=== PATIENT | male | born 2000 | race Hispanic/Latino ===

== ENCOUNTER 2022-12-16 08:15 | Emergency (ER) | payer BC ==
[~2022-12-16] VITALS: Ht 180.3 cm; Wt 101.6 kg
[2022-12-16] MEDS ORDERED: BENZONATATE 100 MG CAPSULE PO ONE (09:30)
[2022-12-16] MEDS ORDERED: ONDANSETRON ODT 4MG TAB SL ONE (09:30)
[2022-12-16] MEDS ORDERED: KETOROLAC 60 MG VIAL (30MG/ML) IM ONE (09:30)
[2022-12-16] MEDS ORDERED: ONDA4TAB10 PO (10:32)
[2022-12-16] MEDS ORDERED: IBUP-2077 PO (10:32)
[2022-12-16] MEDS ORDERED: PROM118S5 PO (10:32)
[2022-12-16] MEDS ORDERED: DESL5TAB45 PO (10:32)
[2022-12-16 10:47] VITALS: BP 121/61
== END 2022-12-16 10:53 | disposition home or self-care (01) ==
LOC: EDH 08:15
DX: J06.9 Acute upper respiratory infection, unspecified (principal); I10 Essential (primary) hypertension; Z20.822 Contact with and (suspected) exposure to COVID-19; Z88.5 Allergy status to narcotic agent; Z98.890 Other specified postprocedural states
CPT/HCPCS: 99284; 87635; 87880; 87804 ×2; 96372; C9803; J1885

== ENCOUNTER 2023-08-17 18:08 | Emergency (ER) | payer BC ==
[~2023-08-17] VITALS: Ht 180.3 cm; Wt 104.3 kg
[~2023-08-17 18:08] MED LIST: ONDA4TAB10 PO
[2023-08-17 19:33] LABS: BASOPHILS # (AUTO) 0.03 K/uL (0.00-0.20); BASOPHILS % (AUTO) 0.4 % (0.0-5.0); EOSINOPHILS % (AUTO) 1.2 % (0.0-8.0); HEMATOCRIT 46.2 % (42-54); IMMATURE GRANULOCYTE ABSOLUTE 0.03 K/uL (0-1); LYMPHOCYTES # (AUTO) 2.1 K/uL (1.0-4.8); LYMPHOCYTES % (AUTO) 26.1 % (21.0-51.0); MEAN CORPUSCULAR HEMOGLOBIN 29.2 pg (27.0-33.0); MEAN CORPUSCULAR HGB CONC 33.5 g/dL (32.0-36.0); MONOCYTES # (AUTO) 1.1 K/uL (0.1-1.0); MONOCYTES % (AUTO) 13.1 % (3.0-13.0); NEUTROPHILS # (AUTO) 4.8 K/uL (1.8-7.7); NEUTROPHILS % (AUTO) 58.8 % (40.0-77.0); PLATELET COUNT (AUTO) 193 K/uL (130-400); RED BLOOD CELL COUNT(AUTO) 5.31 MIL/uL (4.50-6.20); RED CELL DISTRIBUTION WIDTH 12.7 % (11.0-15.5); WHITE BLOOD COUNT (AUTO) 8.2 K/uL (4.8-10.8)
[2023-08-17 19:39] LABS: CREATININE 1.3 mg/dL (0.5-1.5); POTASSIUM 3.2 mmol/L (3.5-5.1)
[2023-08-17 19:44] LABS: ALBUMIN 4.1 g/dL (3.5-5.0); BILIRUBIN,TOTAL 0.2 mg/dL (0.2-1.0); TOTAL PROTEIN, SERUM 8.3 g/dL (6.0-8.3)
[2023-08-17 19:51] LABS: APPEARANCE,URINE CLEAR (CLEAR); BILIRUBIN,URINE NEGATIVE (NEGATIVE); COLOR,URINE YELLOW (YELLOW); GLUCOSE, URINE (UA) NEGATIVE (NEGATIVE); KETONES,URINE NEGATIVE (NEGATIVE); LEUKOCYTE ESTERASE ,URINE NEGATIVE Leu/uL (NEGATIVE); NITRATE,URINE NEGATIVE (NEGATIVE); PH,URINE 5.5 (5.0-8.0); PROTEIN,URINE 50 mg/dL (NEGATIVE); UROBILINOGEN,URINE 0.2 mg/dL (0.2-1.0)
[2023-08-17 19:52] LABS: AMPHET/METH SCREEN,URINE NEGATIVE (NEGATIVE); BARBITURATE SCREEN, URINE NEGATIVE (NEGATIVE); BENZODIAZEPINES SCREEN,URINE NEGATIVE (NEGATIVE); CANNABINOID SCREEN,URINE POSITIVE (NEGATIVE); COCAINE SCREEN,URINE NEGATIVE (NEGATIVE); OPIATE SCREEN,URINE NEGATIVE (NEGATIVE); PHENCYCLIDINE SCREEN,URINE NEGATIVE (NEGATIVE)
[2023-08-17 19:55] LABS: ADD UA MICROSCOPIC YES
[2023-08-17 19:56] LABS: BACTERIA,URINE RARE /HPF (None Seen); MUCUS,URINE MOD LPF (None Seen); OTHER CASTS, URINE 1 /LPF (None Seen); RBC,URINE 0-1 /HPF (0-1); SQUAMOUS EPITHELIAL CELL,UR RARE /HPF (0-2)
[2023-08-17] MEDS ORDERED: IOHEXOL-350 75 ML VIAL IV ONE (20:41)
[2023-08-17 21:43] VITALS: BP 126/70; PULSE 78; RESP 18; O2SAT 98
[2023-08-17] MEDS ORDERED: PANT40TA55 PO (22:25)
== END 2023-08-17 22:49 | disposition home or self-care (01) ==
LOC: EDH 18:08
DX: K74.60 Unspecified cirrhosis of liver (principal); K76.6 Portal hypertension; Z88.5 Allergy status to narcotic agent
CPT/HCPCS: 99284; 74177; 80053; 80305; 82140; 83690; 85025; 86850; 86900; 86901; 87088; 81001; 36415; Q9967

== ENCOUNTER 2024-01-05 11:54 | Observation (INO) | payer BC, MEDICARE ==
[~2024-01-05] VITALS: Ht 180.3 cm; Wt 106.6 kg
[~2024-01-05 11:54] MED LIST changes: +PANT40TA55 PO
[2024-01-05] MEDS: PANTOPRAZOLE 40 MG/VIAL IVP ONE (13:04)
[2024-01-05] MEDS: LORAZEPAM 2 MG/ML 1 ML VIAL IVP ONE (13:04)
[2024-01-05] MEDS: 0.9%NACL 1000ML 1,000 ML IV ONE ×2 (13:04→14:55)
[2024-01-05] MEDS: THIAMINE HCL 100 MG/ML 2ML VIAL IVP ONE (13:04)
[2024-01-05] MEDS: ONDANSETRON 4MG INJ IVP ONE (13:04)
[2024-01-05 13:06] LABS: BASOPHILS # (AUTO) 0.03 K/uL (0.00-0.20); BASOPHILS % (AUTO) 0.2 % (0.0-5.0); EOSINOPHILS # (AUTO) 0.07 K/uL (0.00-0.70); EOSINOPHILS % (AUTO) 0.5 % (0.0-8.0); HEMATOCRIT 47.6 % (42-54); IMMATURE GRANULOCYTE ABSOLUTE 0.07 K/uL (0-1); LYMPHOCYTES # (AUTO) 3.3 K/uL (1.0-4.8); LYMPHOCYTES % (AUTO) 23.9 % (21.0-51.0); MEAN CORPUSCULAR HEMOGLOBIN 29.4 pg (27.0-33.0); MEAN CORPUSCULAR HGB CONC 33.6 g/dL (32.0-36.0); MEAN CORPUSCULAR VOLUME 87.3 fL (79-99); MONOCYTES # (AUTO) 1.3 K/uL (0.1-1.0); MONOCYTES % (AUTO) 9.4 % (3.0-13.0); NEUTROPHILS % (AUTO) 65.5 % (40.0-77.0); PLATELET COUNT (AUTO) 263 K/uL (130-400); RED BLOOD CELL COUNT(AUTO) 5.45 MIL/uL (4.50-6.20); RED CELL DISTRIBUTION WIDTH 13.6 % (11.0-15.5); WHITE BLOOD COUNT (AUTO) 13.7 K/uL (4.8-10.8)
[2024-01-05 13:12] LABS: CARBON DIOXIDE 32 mmol/L (21-32); CHLORIDE 101 mmol/L (101-111); CREATININE 1.1 mg/dL (0.5-1.5); GLOMERULAR FILTR. RATE CALC 96 mL/min (>90); GLUCOSE,RANDOM 98 mg/dL (70-105); POTASSIUM 4.6 mmol/L (3.5-5.1); SODIUM SERUM 139 mmol/L (136-145); UREA NITROGEN, BLOOD 9 mg/dL (7-18)
[2024-01-05 13:16] LABS: ALANINE AMINOTRANSFERASE 41 U/L (12-78); ALBUMIN 4.4 g/dL (3.5-5.0); ALCOHOL, BLOOD < 3 mg/dL (0-10); AMMONIA 14 umol/L (11-32); ASPARTATE AMINOTRANSFERASE 22 U/L (10-37); BILIRUBIN,TOTAL 0.6 mg/dL (0.2-1.0); CREATINE KINASE, TOTAL 207 U/L (21-232); TOTAL PROTEIN, SERUM 8.7 g/dL (6.0-8.3)
[2024-01-05] MEDS: ALBUTEROL 0.083% 2.5 MG/3 ML INH IH ONE (13:55)
[2024-01-05 13:56] VITALS: PULSE 83; RESP 20
[2024-01-05] MEDS ORDERED: LORAZEPAM 2 MG/ML 1 ML VIAL IVP PRN ×2 (16:00)
[2024-01-05] MEDS ORDERED: DOCUSATE SODIUM 100 MG CAP PO PRN ×2 (16:00)
[2024-01-05] MEDS ORDERED: POTASSIUM CHLORIDE 20MEQ/100ML 100 ML IV PRN ×2 (16:00)
[2024-01-05] MEDS ORDERED: PHARMACY COMMUNICATION MISC PRN (16:00)
[2024-01-05] MEDS ORDERED: ACETAMINOPHEN 500 MG TABLET PO PRN (16:00)
[2024-01-05] MEDS ORDERED: MAGNESIUM 2GM PREMIX 50ML 50 ML IV PRN (16:00)
[2024-01-05] MEDS ORDERED: PROMETHAZINE HCL 25 MG TABLET PO PRN (16:00)
[2024-01-05] MEDS ORDERED: CHLORDIAZEPOXIDE HCL 25 MG CAP PO PRN ×2 (16:00)
[2024-01-05] MEDS ORDERED: ALPRAZOLAM 0.5 MG TABLET PO PRN (16:00)
[2024-01-05] MEDS ORDERED: GUAIFENESIN SUGAR-FREE 100 MG/5 ML UDCUP PO PRN (16:00)
[2024-01-05] MEDS ORDERED: ONDANSETRON 4MG INJ IV PRN (16:00)
[2024-01-05] MEDS ORDERED: KCL 20 MEQ ERTAB PO PRN (16:00)
[2024-01-05] MEDS ORDERED: POTASSIUM CHLORIDE 10% ELIXIR 20 MEQ/15 ML UDCUP PO PRN (16:00)
[2024-01-05] MEDS ORDERED: POLYETHYLENE GLYCOL 3350 17 GM POWD.PACK PO PRN (16:00)
[2024-01-05] MEDS ORDERED: LACTULOSE 20 GM/30 ML UDCUP PO PRN (16:00)
[2024-01-05] MEDS: LACTATED RINGERS 1000ML 1,000 ML IV SCH (16:18)
[2024-01-05 16:45] LABS: MAGNESIUM 1.9 mg/dL (1.80-2.40)
[2024-01-05] MEDS: THIAMINE HCL 100 MG, FOLIC ACID 1 MG, M.V.I. IV [ADULT] 10 ML in 0.9%NACL 1000ML 1,000 ML IV SCH (16:47)
[2024-01-05 17:52] VITALS: O2SAT 98
[2024-01-05] MEDS: CEFTRIAXONE 2GM VIAL IVPB SCH (17:57)
[2024-01-05 19:49] VITALS: BP 116/63; PULSE 66; RESP 16
[2024-01-05] MEDS ORDERED: SUCRALFATE 1 GM TABLET PO SCH (21:00)
[2024-01-06] MEDS ORDERED: NICOTINE 14 MG/ 24 HR PATCH TD SCH (09:00)
[2024-01-06] MEDS ORDERED: FOLIC ACID 1 MG TABLET PO SCH (09:00)
[2024-01-06] MEDS ORDERED: MULTIVITAMIN TABLET PO SCH (09:00)
[2024-01-06] MEDS ORDERED: LISINOPRIL 10 MG TABLET PO SCH (09:00)
[2024-01-06] MEDS ORDERED: THIAMINE HCL 100 MG/ML 2ML VIAL IM SCH (09:00)
== END 2024-01-05 19:56 | disposition left against medical advice (07) ==
LOC: EDH 11:54 → EDHIP 15:59
PROVIDERS: ADMIT Internal Medicine; ATTEND Internal Medicine
DX: R07.9 Chest pain, unspecified (principal); K92.0 Hematemesis; I10 Essential (primary) hypertension; N30.00 Acute cystitis without hematuria; R74.8 Abnormal levels of other serum enzymes; K74.60 Unspecified cirrhosis of liver; R20.0 Anesthesia of skin; F10.10 Alcohol abuse, uncomplicated; F14.90 Cocaine use, unspecified, uncomplicated; F17.210 Nicotine dependence, cigarettes, uncomplicated; F19.10 Other psychoactive substance abuse, uncomplicated; E78.5 Hyperlipidemia, unspecified; F12.90 Cannabis use, unspecified, uncomplicated; Z88.5 Allergy status to narcotic agent; Y90.0 Blood alcohol level of less than 20 mg/100 ml
CPT/HCPCS: 96376; 96361; 96365; 96366; 96375; 99285; 82550 ×2; 83735 ×2; 84100; 84484 ×3; 80053; 82140; 85025; 83605 ×2; 36415; 71045; 93005; 94640; G0378 ×4; J7030; J0696; J3411 ×2; J2405; J2060; J3490; C9113

== ENCOUNTER 2024-03-09 10:40 | Emergency (ER) | payer MEDICARE, OTHER ==
[~2024-03-09] VITALS: Ht 180.3 cm; Wt 104.3 kg
[2024-03-09 11:16] LABS: POTASSIUM 3.6 mmol/L (3.5-5.1)
[2024-03-09 11:20] LABS: AMPHET/METH SCREEN,URINE NEGATIVE (NEGATIVE); BARBITURATE SCREEN, URINE NEGATIVE (NEGATIVE); BENZODIAZEPINES SCREEN,URINE NEGATIVE (NEGATIVE); CANNABINOID SCREEN,URINE POSITIVE (NEGATIVE); COCAINE SCREEN,URINE POSITIVE (NEGATIVE); OPIATE SCREEN,URINE NEGATIVE (NEGATIVE); PHENCYCLIDINE SCREEN,URINE NEGATIVE (NEGATIVE)
[2024-03-09 11:21] LABS: ALBUMIN 4.3 g/dL (3.5-5.0); BILIRUBIN,TOTAL 0.8 mg/dL (0.2-1.0); TOTAL PROTEIN, SERUM 8.3 g/dL (6.0-8.3)
[2024-03-09 11:22] LABS: APPEARANCE,URINE CLOUDY (CLEAR); BILIRUBIN,URINE NEGATIVE (NEGATIVE); COLOR,URINE YELLOW (YELLOW); GLUCOSE, URINE (UA) NEGATIVE (NEGATIVE); KETONES,URINE 10 mg/dL (NEGATIVE); LEUKOCYTE ESTERASE ,URINE NEGATIVE Leu/uL (NEGATIVE); NITRATE,URINE NEGATIVE (NEGATIVE); PH,URINE 5.5 (5.0-8.0); PROTEIN,URINE 100 mg/dL (NEGATIVE); UROBILINOGEN,URINE 0.2 mg/dL (0.2-1.0)
[2024-03-09 11:23] LABS: INR 0.95 (0.85-1.15); PROTHROMBIN TIME 11.2 SEC (9.6-11.6)
[2024-03-09 11:25] LABS: PARTIAL THROMBOPLASTIN TIME 31.6 SEC (26.3-35.5)
[2024-03-09 11:33] LABS: ADD UA MICROSCOPIC YES
[2024-03-09 11:34] LABS: BACTERIA,URINE FEW /HPF (None Seen); MUCUS,URINE FEW LPF (None Seen); SQUAMOUS EPITHELIAL CELL,UR RARE /HPF (0-2)
[2024-03-09 11:38] LABS: BASOPHILS # (AUTO) 0.03 K/uL (0.00-0.20); BASOPHILS % (AUTO) 0.2 % (0.0-5.0); EOSINOPHILS # (AUTO) 0.06 K/uL (0.00-0.70); EOSINOPHILS % (AUTO) 0.5 % (0.0-8.0); HEMATOCRIT 46.5 % (42-54); IMMATURE GRANULOCYTE ABSOLUTE 0.06 K/uL (0-1); LYMPHOCYTES # (AUTO) 3.8 K/uL (1.0-4.8); LYMPHOCYTES % (AUTO) 31.6 % (21.0-51.0); MEAN CORPUSCULAR HEMOGLOBIN 29.4 pg (27.0-33.0); MEAN CORPUSCULAR HGB CONC 34.2 g/dL (32.0-36.0); MEAN CORPUSCULAR VOLUME 86.1 fL (79-99); MONOCYTES # (AUTO) 0.9 K/uL (0.1-1.0); MONOCYTES % (AUTO) 7.1 % (3.0-13.0); NEUTROPHILS # (AUTO) 7.3 K/uL (1.8-7.7); NEUTROPHILS % (AUTO) 60.1 % (40.0-77.0); PLATELET COUNT (AUTO) 238 K/uL (130-400); RED CELL DISTRIBUTION WIDTH 13.5 % (11.0-15.5); WHITE BLOOD COUNT (AUTO) 12.1 K/uL (4.8-10.8)
[2024-03-09] MEDS: 0.9%NACL 1000ML 1,000 ML IV ONE (13:12)
[2024-03-09] MEDS: ONDANSETRON 4MG INJ IVP ONE (13:12)
[2024-03-09] MEDS: PANTOPRAZOLE 40 MG/VIAL IVP ONE (13:12)
[2024-03-09 13:43] VITALS: BP 138/43; PULSE 63; RESP 16; O2SAT 98
[2024-03-09] MEDS ORDERED: PANT40TA55 PO (14:31)
[2024-03-09] MEDS ORDERED: ONDA4TAB10 PO (14:31)
== END 2024-03-09 14:57 | disposition home or self-care (01) ==
LOC: EDH 10:40
DX: K29.01 Acute gastritis with bleeding (principal); R11.0 Nausea; I10 Essential (primary) hypertension; Z88.5 Allergy status to narcotic agent
CPT/HCPCS: 99285; 96374; 71045; 96361; 96375; 80053; 80305; 83690; 85025; 85610; 85730; 87088; 36415; 93005; 81001; J7030; J2405; C9113

== ENCOUNTER 2024-10-14 13:05 | Emergency (ER) | payer OTHER ==
[~2024-10-14] VITALS: Ht 180.3 cm; Wt 104.3 kg
[~2024-10-14 13:05] MED LIST changes: +ONDA-243 PO; -ONDA4TAB10 PO
--- NOTE | 2024-10-14 13:43 | ERN ---
General Chief Complaint: Abdominal Pain Stated Complaint: CP,LIVER FAILURE,COUGHING BLOOD Time Seen by MD: 13:07 Time Seen by Midlevel: 13:07 Source: patient History of Present Illness Initial Comments Patient is a 24-year-old male with an apparent history of liver failure presenting to the emergency department with right upper quadrant abdominal pain. Patient states he had not drank any alcohol for the last three months however yesterday he reports drinking large amounts of alcohol. This morning he reports multiple episodes of bloody vomit. He does report a similar episode approximately six months ago. No other concerns reported at this time. When asked who his primary care doctor was he states in the emergency department as h is primary care doctor. He usually comes here for a "checkup." Allergies: Coded Allergies: morphine (Unverified Allergy, Unknown, 08/10/22) Home Meds Active Scripts Famotidine (Pepcid) 20 Mg Tablet, 1 TAB PO BID for 10 Days, #20 TAB 0 Refills Prov:BASIL CAMP 10/14/24 Ondansetron (Ondansetron Odt) 4 Mg Tab.rapdis, 4 MG PO BID for 7 Days, #14 TAB Prov:BASIL CAMP 10/14/24 Pantoprazole Sodium (Protonix) 40 Mg Ectab, 40 MG PO DAILY for 30 Days, #30 TAB.EC Prov:VARSHA ACEVEDO MD 03/09/24 Ondansetron (Ondansetron Odt) 4 Mg Tab.rapdis, 4 MG PO BID for 5 Days, #10 TAB Prov:AVRSHA ACEVEDO MD 03/09/24 Pantoprazole Sodium (Protonix) 40 Mg Ectab, 40 MG PO DAILY, #30 TAB.EC Prov:MELISSA MOODY MD 08/17/23 Ondansetron (Ondansetron Odt) 4 Mg Tab.rapdis, 4 MG PO TID PRN for NAUSEA, #15 TAB 0 Refills Prov:NATHANIEL BYRD MD 12/16/22 Past Medical History Past Medical History: Liver Disease Medical History Other: CIRRHOSIS, NON COMPLIANT W/ BP MEDS Past Surgical History: Other Surgical History Other: RIGHT LEG Family History Family History: CAD, DM, HTN Social History Social History: Smokers, Drugs, ETOH, Lives with family ROS Dictation CONSTITUTIONAL: Negative except for HPI HEAD/FACE: Negative except for HPI EENT: Negative except for HPI RESPIRATORY: Negative except for HPI GASTROINTESTINAL/ABDOMINAL: Negative except for HPI GENITOURINARY: Negative except for HPI MUSCULOSKELETAL: Negative except for HPI INTEGUMENTARY: Negative except for HPI NEUROLOGICAL/PSYCH: Negative except for HPI HEMATOLOGIC/LYMPHATIC: Negative except for HPI All Systems Negative, Except as noted above. 13 point review of systems assessed and all negative except for above. Physical Exam Physical Exam Dictation Vital Signs reviewed General Appearance: Alert, oriented x 3, no acute distress, well developed, nourished. Head and Face: non-traumatic. Eyes: PERRL, pink conjunctivas, eyelid no trauma, anterior chamber with arcus senilis. Ears: Pinnas intact and no signs of trauma or erythema ear canals clear and no d ischarge TM no erythema Nose: No discharge, no bleeding. Oropharynx: Mouth normal, tongue pink, pharynx clear,no erythema, tonsils no exudates, no abscesses noted, mucous membrane moist Neck: Supple, non-tender, no thyromegaly, no masses, no JVD, no bruits Breast:Deferred Chest:No tenderness, no crepitus, no paradoxical movement, no retractions Lungs:Clear, well-ventilated, symmetric, no rales, no wheezing, no rhonchi, no stridor, good breath sounds bilaterally Heart: Regular rate, regular rhythm, no murmur, no gallops Vascular: no peripheral edema, Abdomen: Soft, positive bowel sounds, nondistended, no guarding, nontender, no rebound, no masses no hepatomegaly, no splenomegaly, no Valentino's sign, no hernias. Rectal: Deferred Genital: Deferred Neurological: Normal speech, motor function intact, sensory function intact Musculoskeletal: Neck nontender, full range of motion, back nontender, full range of motion, Extremities: nontender, full range of motion Skin: Color pink, dry, no turgor, no rash, no lacerations, no abrasions, no contusions. Lymphatic: Deferred Results Laboratory and Microbiology Lab and Micro Result Laboratory Tests Test 10/14/24 14:15 White Blood Count 14.4 K/uL (4.8-10.8) H Red Blood Count 5.40 MIL/uL (4.50-6.20) Hemoglobin 16.1 g/dL (14.0-18.0) Hematocrit 48.3 % (42-54) Mean Corpuscular Volume 89.4 fL (79-99) Mean Corpuscular Hemoglobin 29.8 pg (27.0-33.0) Mean Corpuscular Hemoglobin Concent 33.3 g/dL (32.0-36.0) Red Cell Distribution Width 13.2 % (11.0-15.5) Platelet Count 234 K/uL (130-400) Mean Platelet Volume 11.0 fL (7.5-10.5) H Immature Granulocyte % (Auto) 0.4 % (0-1) Neutrophils (%) (Auto) 77.9 % (40.0-77.0) H Lymphocytes (%) (Auto) 15.2 % (21.0-51.0) L Monocytes (%) (Auto) 6.1 % (3.0-13.0) Eosinophils (%) (Auto) 0.1 % (0.0-8.0) Basophils (%) (Auto) 0.3 % (0.0-5.0) Neutrophils # (Auto) 11.2 K/uL (1.8-7.7) H Lymphocytes # (Auto) 2.2 K/uL (1.0-4.8) Monocytes # (Auto) 0.9 K/uL (0.1-1.0) Eosinophils # (Auto) 0.02 K/uL (0.00-0.70) Basophils # (Auto) 0.04 K/uL (0.00-0.20) Absolute Immature Granulocyte (auto 0.06 K/uL (0-1) Nucleated Red Blood Cells 0.0 % (0.0-0.19) Prothrombin Time 10.9 SEC (9.6-11.6) Prothromb Time International Ratio 0.97 (0.85-1.15) Activated Partial Thromboplast Time 29.4 SEC (26.3-35.5) Sodium Level 144 mmol/L (136-145) Potassium Level 4.1 mmol/L (3.5-5.1) Chloride Level 106 mmol/L (101-111) Carbon Dioxide Level 28 mmol/L (21-32) Blood Urea Nitrogen 12 mg/dL (7-18) Creatinine 1.1 mg/dL (0.5-1.3) Glomerular Filtration Rate Calc 95 mL/min (>90) Random Glucose 96 mg/dL (70-105) Total Calcium 9.3 mg/dL (8.5-10.1) Total Bilirubin 0.7 mg/dL (0.2-1.0) Direct Bilirubin 0.1 mg/dL (0.0-0.3) Aspartate Amino Transf (AST/SGOT) 42 U/L (10-37) H Alanine Aminotransferase (ALT/SGPT) 65 U/L (12-78) Alkaline Phosphatase 140 U/L (50-136) H Total Protein 8.7 g/dL (6.0-8.3) H Albumin 4.5 g/dL (3.5-5.0) Lipase 29 U/L (16-77) Labs Reviewed?: Yes MDM MDM: Patient is a 24-year-old male with an apparent history of liver failure presenting to the emergency department with right upper quadrant abdominal pain. Patient states he had not drank any alcohol for the last three months however yesterday he reports drinking large amounts of alcohol. This morning he reports multiple episodes of bloody vomit. He does report a similar episode approximately six months ago. No other concerns reported at this time. On physical examination patient is in no acute distress. He specifically denies any chest pain, shortness for breath bloody stools. His abdominal examination is unremarkable. His CBC shows leukocytosis with a blood cell count [id number] however his chemistries unremarkable. Liver function tests are stable. Bilirubin is normal. Acute cholecystitis less likely given unremarkable labs. Lipase is normal. Patient was observed in the emergency department for over2 hours and has remained stable and asymptomatic. There has been no episodes of coughing up blood or vomiting in the emergency department. The patient will be discharged home with supportive management. He needs to follow up with your primary care provider for repeat evaluation. Return precautions discussed Differential diagnosis: Pancreatitis, acute cholecystitis, alcohol abuse There are no social concerns with this patient. Prescription drug management Prescriptions will include: Zofran and Pepcid Medical management and examination interpretation discussions were had by me with other qualified healthcare professionals as indicated for the patient's care. ED Course Orders Procedure Category Date Status Time Cbc With Differential LAB 10/14/24 Complete 13:27 Basic Metabolic Panel LAB 10/14/24 Complete 13:27 Lipase LAB 10/14/24 Complete 13:27 Hepatic Function Panel LAB 10/14/24 Complete 13:27 Pt And Ptt LAB 10/14/24 Complete 13:27 Vital Signs Date Time Temp Pulse Resp B/P (MAP) Pulse Ox O2 Delivery O2 Flow Rate FiO2 10/14/24 14:48 98.2 79 20 128/86 98 Room Air* 0 21 10/14/24 13:28 98.1 85 20 128/89 100 Room Air DX & DISP Disposition: Discharge Departure Impression: Primary Impression: RUQ abdominal pain Condition: Stable Scripts Famotidine (Pepcid) 20 Mg Tablet 1 TAB PO BID for 10 Days, #20 TAB 0 Refills Prov: BASIL CAMP 10/14/24 Ondansetron (Ondansetron Odt) 4 Mg Tab.rapdis 4 MG PO BID for 7 Days, #14 TAB Prov: BASIL CAMP 10/14/24 Additional Instructions: Your blood work today is unremarkable. Your liver enzymes are normal. There are no signs of liver failure at this time. Your symptoms are most likely related to your alcohol intake. You will need to follow up with the primary care provider for further evaluation. Return to the emergency department if you develop any new or worsening symptoms I have given you a prescription for Zofran which should help with any nausea. Referrals: NONE (PCP) Time of Disposition: 15:17 I have reviewed the case, and I agree with, Diagnosis and Plan I performed the substantive portion of the visit. I have reviewed and personally made and approve the management plan that is documented in the note by myself or the TALISHA. I acknowledge for responsibility for the patient's man agement plan. BASIL CAMP Oct 14, 2024 13:43
[2024-10-14 14:38] LABS: BASOPHILS # (AUTO) 0.04 K/uL (0.00-0.20); BASOPHILS % (AUTO) 0.3 % (0.0-5.0); EOSINOPHILS # (AUTO) 0.02 K/uL (0.00-0.70); EOSINOPHILS % (AUTO) 0.1 % (0.0-8.0); HEMATOCRIT 48.3 % (42-54); IMMATURE GRANULOCYTE ABSOLUTE 0.06 K/uL (0-1); LYMPHOCYTES # (AUTO) 2.2 K/uL (1.0-4.8); LYMPHOCYTES % (AUTO) 15.2 % (21.0-51.0); MEAN CORPUSCULAR HEMOGLOBIN 29.8 pg (27.0-33.0); MEAN CORPUSCULAR HGB CONC 33.3 g/dL (32.0-36.0); MEAN CORPUSCULAR VOLUME 89.4 fL (79-99); MONOCYTES # (AUTO) 0.9 K/uL (0.1-1.0); MONOCYTES % (AUTO) 6.1 % (3.0-13.0); NEUTROPHILS # (AUTO) 11.2 K/uL (1.8-7.7); NEUTROPHILS % (AUTO) 77.9 % (40.0-77.0); PLATELET COUNT (AUTO) 234 K/uL (130-400); RED CELL DISTRIBUTION WIDTH 13.2 % (11.0-15.5); WHITE BLOOD COUNT (AUTO) 14.4 K/uL (4.8-10.8)
[2024-10-14 14:43] LABS: INR 0.97 (0.85-1.15); PROTHROMBIN TIME 10.9 SEC (9.6-11.6)
[2024-10-14 14:45] LABS: PARTIAL THROMBOPLASTIN TIME 29.4 SEC (26.3-35.5)
[2024-10-14 14:48] VITALS: BP 128/86; PULSE 79; RESP 20; TEMP 98.3; O2SAT 98
[2024-10-14 15:00] LABS: ALBUMIN 4.5 g/dL (3.5-5.0); BILIRUBIN,DIRECT 0.1 mg/dL (0.0-0.3); BILIRUBIN,TOTAL 0.7 mg/dL (0.2-1.0); CREATININE 1.1 mg/dL (0.5-1.3); POTASSIUM 4.1 mmol/L (3.5-5.1); TOTAL PROTEIN, SERUM 8.7 g/dL (6.0-8.3)
[2024-10-14] MEDS ORDERED: ONDA-243 PO (15:19)
[2024-10-14] MEDS ORDERED: FAMO-136 PO (15:19)
== END 2024-10-14 15:37 | disposition home or self-care (01) ==
LOC: EDH 13:05
DX: R10.11 Right upper quadrant pain (principal); F17.200 Nicotine dependence, unspecified, uncomplicated; Z79.899 Other long term (current) drug therapy; Z88.5 Allergy status to narcotic agent
CPT/HCPCS: 36415; 80048; 80076; 83690; 85025; 85610; 85730; 99283

== ENCOUNTER 2024-12-25 08:12 | Emergency (ER) | payer OTHER ==
[~2024-12-25] VITALS: Ht 177.8 cm; Wt 106.1 kg
[~2024-12-25 08:12] MED LIST changes: +FAMO-136 PO
[2024-12-25] MEDS: 0.9%NACL 1000ML 1,000 ML IV ONE (08:55)
[2024-12-25] MEDS: acetaMINOPHEN WITH coDEINE 1 TAB TAB PO ONE (09:01)
[2024-12-25] MEDS: ketOROlac 15MG/ML VIAL (15MG/ML) IV ONE (09:01)
--- NOTE | 2024-12-25 09:11 | ERN ---
General Chief Complaint: Congestion Stated Complaint: CONGESTION Time Seen by MD: 08:16 History of Present Illness Initial Comments 24-year-old male, history of liver cirrhosis, presents for fever, rhinorrhea, nasal congestion, a productive cough for six days. He went to [facility] yesterday and was diagnosed with a pneumonia. He was started on doxycycline. He reports that last night he felt like he could not breathe prompting him to come to the ER. He was still last fevers. He has been taking lupu-[id number] cough and cold medications. Allergies: Coded Allergies: morphine (Unverified Allergy, Unknown, 08/10/22) Home Meds Active Scripts Famotidine (Pepcid) 20 Mg Tablet, 1 TAB PO BID for 10 Days, #20 TAB 0 Refills Prov:BASIL CAMP 10/14/24 Ondansetron (Ondansetron Odt) 4 Mg Tab.rapdis, 4 MG PO BID for 7 Days, #14 TAB Prov:BASIL CAMP 10/14/24 Pantoprazole Sodium (Protonix) 40 Mg Ectab, 40 MG PO DAILY for 30 Days, #30 TAB.EC Prov:VARSHA ACEVEDO MD 03/09/24 Ondansetron (Ondansetron Odt) 4 Mg Tab.rapdis, 4 MG PO BID for 5 Days, #10 TAB Prov:VARSHA ACEVEDO MD 03/09/24 Pantoprazole Sodium (Protonix) 40 Mg Ectab, 40 MG PO DAILY, #30 TAB.EC Prov:MELSISA MOODY MD 08/17/23 Ondansetron (Ondansetron Odt) 4 Mg Tab.rapdis, 4 MG PO TID PRN for NAUSEA, #15 TAB 0 Refills Prov:NATHANIEL BYRD MD 12/16/22 Past Medical History Past Medical History: Liver Disease, Pneumonia Medical History Other: CIRRHOSIS, NON COMPLIANT W/ BP MEDS Past Surgical History: Other Surgical History Other: RT KNEE SX Family History Family History: CAD, DM, HTN Social History Social History: Smokers, Drugs, ETOH, Lives with family ROS Dictation CONSTITUTIONAL: Fever and chills HEAD/FACE: No signs of trauma. EENT: Rhinorrhea congestion RESPIRATORY: Mild dyspnea productive cough CARDIOVASCULAR: No chest pain, no edema, no palpitations, no syncope. GASTROINTESTINAL/ABDOMINAL: No abdominal pain, no constipation, no diarrhea, no nausea, no vomiting. GENITOURINARY: No abnormal discharge, no dysuria, no frequent urination, no hematuria. No complaints of pain in the genitals. MUSCULOSKELETAL: No back pain, no gout, no joint pain, no joint swelling, no muscle pain, no muscle stiffness, no neck pain. INTEGUMENTARY: No change in color, no change in hair/nails, no dryness, no lesion, no lumps, no rash. NEUROLOGICAL/PSYCH: No anxiety, not depressed, no emotional problem, no headache, no numbness, no pre-existing deficit, no history of seizures, no tremors, no weakness. HEMATOLOGIC/LYMPHATIC: Not anemic, no history of blood clots, no apparent bleeding, no bruising, glands not swollen. All Systems Negative, Except as Noted. Physical Exam Physical Exam Dictation VITAL SIGNS: Reviewed. GENERAL APPEARANCE: Alert, oriented x3, no acute distress, obese. HEAD AND FACE: Non-traumatic. EYES: PERRL, pink conjunctivas, eyelid no trauma, anterior chamber clear. EARS: Pinnas intact and no signs of trauma or erythema. Ear canals clear and no discharge. TMs no erythema. NOSE: Rhinorrhea OROPHARYNX: Mouth normal, teeth no caries, tongue pink. Pharynx clear, no erythema. Tonsils no exudates, no abscesses noted. Mucous membrane moist. NECK: Supple, non-tender, no thyromegaly, no masses, no JVD, no bruits. BREAST: Deferred. CHEST: No tenderness, no crepitus, no paradoxical movement, no retractions. LUNGS: Mildly coarse breath sounds VASCULAR: No peripheral edema. ABDOMEN: Soft, positive bowel sounds, nondistended, no guarding, nontender, no rebound, no masses no hepatomegaly, no splenomegaly, no Valentino's sign, no hernias. RECTAL: Deferred. GENITAL: Deferred. NEUROLOGICAL: Normal speech, gross motor function intact, gross sensory func tion intact. MUSCULOSKELETAL: Neck nontender, full range of motion, back nontender, full range of motion. EXTREMITIES: Nontender, full range of motion. SKIN: Color pink, dry, no turgor, no rash, no lacerations, no abrasions, no contusions. LYMPHATICS: Deferred. Results Laboratory and Microbiology Lab and Micro Result Laboratory Tests Test 12/25/24 08:55 12/25/24 09:07 White Blood Count 15.6 K/uL (4.8-10.8) H Red Blood Count 5.12 MIL/uL (4.50-6.20) Hemoglobin 15.0 g/dL (14.0-18.0) Hematocrit 44.6 % (42-54) Mean Corpuscular Volume 87.1 fL (79-99) Mean Corpuscular Hemoglobin 29.3 pg (27.0-33.0) Mean Corpuscular Hemoglobin Concent 33.6 g/dL (32.0-36.0) Red Cell Distribution Width 13.4 % (11.0-15.5) Platelet Count 208 K/uL (130-400) Mean Platelet Volume 10.6 fL (7.5-10.5) H Immature Granulocyte % (Auto) 0.6 % (0-1) Neutrophils (%) (Auto) 71.2 % (40.0-77.0) Lymphocytes (%) (Auto) 14.8 % (21.0-51.0) L Monocytes (%) (Auto) 11.9 % (3.0-13.0) Eosinophils (%) (Auto) 1.2 % (0.0-8.0) Basophils (%) (Auto) 0.3 % (0.0-5.0) Neutrophils # (Auto) 11.1 K/uL (1.8-7.7) H Lymphocytes # (Auto) 2.3 K/uL (1.0-4.8) Monocytes # (Auto) 1.9 K/uL (0.1-1.0) H Eosinophils # (Auto) 0.19 K/uL (0.00-0.70) Basophils # (Auto) 0.05 K/uL (0.00-0.20) Absolute Immature Granulocyte (auto 0.09 K/uL (0-1) Nucleated Red Blood Cells 0.0 % (0.0-0.19) Sodium Level 139 mmol/L (136-145) Potassium Level 3.8 mmol/L (3.5-5.1) Chloride Level 102 mmol/L (101-111) Carbon Dioxide Level 32 mmol/L (21-32) Blood Urea Nitrogen 9 mg/dL (7-18) Creatinine 1.2 mg/dL (0.5-1.3) Glomerular Filtration Rate Calc 86 mL/min (>90) Random Glucose 117 mg/dL (70-105) H Lactic Acid Level 1.2 mmol/L (0.8-2.5) Total Calcium 8.8 mg/dL (8.5-10.1) Total Bilirubin 0.7 mg/dL (0.2-1.0) Direct Bilirubin 0.1 mg/dL (0.0-0.3) Aspartate Amino Transf (AST/SGOT) 30 U/L (10-37) Alanine Aminotransferase (ALT/SGPT) 64 U/L (12-78) Alkaline Phosphatase 111 U/L (50-136) Total Creatine Kinase 112 U/L (21-232) # Troponin I High Sensitivity < 4.0 ng/L (4-75) L B-Type Natriuretic Peptide < 5 pg/mL (0-100) Total Protein 7.8 g/dL (6.0-8.3) Albumin 3.5 g/dL (3.5-5.0) Procalcitonin < 0.05 ng/mL (0.05-0.5) L Influenza Type A Antigen Negative For Type A Influenza Type B Antigen Negative For Type B MDM CC: Rhinorrhea nasal congestion cough and fever Historian: Patient Comorbidities: Liver cirrhosis Limitations by social determinants of health: None Differential diagnosis: Viral URI, pneumonia, SIRS, sepsis, other. CXR (independently interpreted by me ): no cardiomegaly no pleural effusions no focal infiltrates. Vital signs: Afebrile, tachycardic heart rate 114 otherwise stable. 96% on room air saturation. Labs (independently Ordered andinterpreted by me): Leukocytosis 15.6 K, no shift or bands. metabolic panel normal, liver enzymes normal, lactic acid normal, CK normal, troponin normal, BNP normal, procalcitonin normal. Flu a and B negative. Treatment in ED: 1 g Rocephin IV, 30 mg Toradol IV, 1 L normal saline, Tylenol with codeine p.o.. Plan: Patient has already been treated for community-acquired pneumonia. He does have leukocytosis, and flu-like symptoms, so this seems reasonable to time. We will recommend he continues with the medication. We will also send him some cough medication to use at night he was this appears to be is primary concern. He was p.o. tolerant, no clinical signs of dehydration or toxicity. No signs of respiratory distress. Low suspicion for ACS, or other life-threatening pathology. We will DC to PCP follow up. ED Course Orders Procedure Category Date Status Time Cardiac Panel LAB 12/25/24 Complete 08:31 Cbc With Differential LAB 12/25/24 Complete 08:31 Basic Metabolic Panel LAB 12/25/24 Complete 08:31 Lactic Acid LAB 12/25/24 Complete 08:31 Procalcitonin LAB 12/25/24 Complete 08:31 Influenza Type A & B, LAB 12/25/24 Complete Rapid 08:31 Chest 1vw RAD 12/25/24 Taken 08:31 Acetaminophen With PHA 12/25/24 Complete Codeine (Tylenol-Code 09:00 0.9%Nacl 1000ml (Ns PHA 12/25/24 Complete 1000ml) 09:00 B-Type Natriuretic LAB 12/25/24 Complete Peptide 08:31 Hepatic Function Panel LAB 12/25/24 Complete 08:31 Ketorolac PHA 12/25/24 Complete Tromethamine 15mg/Ml 09:00 Ceftriaxone 1g Vial PHA 12/25/24 Complete (Rocephine 1g Inj) 10:00 Current Medications Medications (Trade) Dose Ordered Sig/Lisa Route PRN Reason Start Time Stop Time Status Last Admin Dose Admin Acetaminophen/ Codeine Phosphate (TYLenol-coDEINE TAB) 1 tab ONCE ONCE PO 12/25/24 09:00 12/25/24 09:01 DC 12/25/24 09:01 Ceftriaxone Sodium (ROCEphine 1G INJ) 1 gm ONCE ONCE IVPB 12/25/24 10:00 12/25/24 10:01 DC 12/25/24 09:53 Ketorolac Tromethamine (toRADol) 15 mg ONCE ONCE IV 12/25/24 09:00 12/25/24 09:01 DC 12/25/24 09:01 Sodium Chloride 1,000 ml @ 0 mls/hr ONCE ONCE IV 12/25/24 09:00 12/25/24 09:01 DC 12/25/24 08:55 Vital Signs Date Time Temp Pulse Resp B/P (MAP) Pulse Ox O2 Delivery O2 Flow Rate FiO2 12/25/24 08:31 98.2 114 20 127/90 96 Room Air* 0 21 12/25/24 08:13 99.5 104 20 139/88 95 Room Air DX & DISP Disposition: Discharge Departure Impression: Primary Impression: Upper respiratory infection Condition: Stable Scripts Promethazine HCl/Codeine (Promethazine-Codeine Syrup) 6.25 Mg-10 Mg/5 Ml Syrup 5 ML PO Q4HPRN PRN for cough, #120 ML 0 Refills Prov: ELISEO MIMS DO 12/25/24 Additional Instructions: Your symptoms are consistent with an upper respiratory infection. Your chest x-ray is unremarkable. Your vital signs has been stable here in the ER. Your blood work do show an elevated white blood cell count consistent with infection. Otherwise your lab work ( CBC, BNP, lactic acid, CK, troponin, procalcitonin, liver enzymes) is unremarkable. You received IV fluids and IV antibiotics here in the ER. Continue taking the doxycycline, which is an antibiotic, that you have already been prescribed. You can take cough and cold medications as needed. I have prescribed promethazine -codeine, which say cough syrup you can use at night to help your sleep. Drink plenty of liquids. Please follow up with the primary doctor in a few days for re-evaluation. Please return to the emergency department if you have any concerns. Referrals: COURTNEY STEINBERG M.D. (PCP) ELISEO MIMS DO Dec 25, 2024 09:11
[2024-12-25 09:19] LABS: BASOPHILS # (AUTO) 0.05 K/uL (0.00-0.20); BASOPHILS % (AUTO) 0.3 % (0.0-5.0); EOSINOPHILS # (AUTO) 0.19 K/uL (0.00-0.70); EOSINOPHILS % (AUTO) 1.2 % (0.0-8.0); HEMATOCRIT 44.6 % (42-54); IMMATURE GRANULOCYTE ABSOLUTE 0.09 K/uL (0-1); LYMPHOCYTES # (AUTO) 2.3 K/uL (1.0-4.8); LYMPHOCYTES % (AUTO) 14.8 % (21.0-51.0); MEAN CORPUSCULAR HEMOGLOBIN 29.3 pg (27.0-33.0); MEAN CORPUSCULAR HGB CONC 33.6 g/dL (32.0-36.0); MEAN CORPUSCULAR VOLUME 87.1 fL (79-99); MONOCYTES # (AUTO) 1.9 K/uL (0.1-1.0); MONOCYTES % (AUTO) 11.9 % (3.0-13.0); NEUTROPHILS # (AUTO) 11.1 K/uL (1.8-7.7); NEUTROPHILS % (AUTO) 71.2 % (40.0-77.0); PLATELET COUNT (AUTO) 208 K/uL (130-400); RED BLOOD CELL COUNT(AUTO) 5.12 MIL/uL (4.50-6.20); RED CELL DISTRIBUTION WIDTH 13.4 % (11.0-15.5); WHITE BLOOD COUNT (AUTO) 15.6 K/uL (4.8-10.8)
[2024-12-25 09:27] LABS: CARBON DIOXIDE 32 mmol/L (21-32); CHLORIDE 102 mmol/L (101-111); CREATININE 1.2 mg/dL (0.5-1.3); GLOMERULAR FILTR. RATE CALC 86 mL/min (>90); GLUCOSE,RANDOM 117 mg/dL (70-105); POTASSIUM 3.8 mmol/L (3.5-5.1); SODIUM SERUM 139 mmol/L (136-145); UREA NITROGEN, BLOOD 9 mg/dL (7-18)
[2024-12-25 09:34] LABS: ALANINE AMINOTRANSFERASE 64 U/L (12-78); ALBUMIN 3.5 g/dL (3.5-5.0); ASPARTATE AMINOTRANSFERASE 30 U/L (10-37); BILIRUBIN,DIRECT 0.1 mg/dL (0.0-0.3); BILIRUBIN,TOTAL 0.7 mg/dL (0.2-1.0); CREATINE KINASE, TOTAL 112 U/L (21-232); TOTAL PROTEIN, SERUM 7.8 g/dL (6.0-8.3)
[2024-12-25 09:42] LABS: B-TYPE NATRIURETIC PEPTIDE < 5 pg/mL (0-100)
[2024-12-25] MEDS: cefTRIAXone 1G VIAL IVPB ONE (09:53)
[2024-12-25 10:01] LABS: INFLUENZA TYPE A Negative For Type A (NEGATIVE); INFLUENZA TYPE B Negative For Type B (NEGATIVE)
--- NOTE | 2024-12-25 10:03 | HMCIMG ---
CHEST 1VW HISTORY: Cough COMPARISON: 03/09/2024 FINDINGS: A frontal projection of the chest was obtained. No acute pulmonary infiltrates is seen. The heart is normal in size. Prominent interstitial markings are seen. No evidence of aortic calcification is seen. IMPRESSION: 1. No acute pulmonary infiltrate is seen.
[2024-12-25] MEDS ORDERED: CODE473S6 PO (10:07)
[2024-12-25 10:51] VITALS: BP 125/85; PULSE 84; RESP 18; TEMP 98.2; O2SAT 96
[2024-12-26] MEDS ORDERED: ALBUHFA IH (07:46)
== END 2024-12-25 10:52 | disposition home or self-care (01) ==
LOC: EDH 08:12
DX: J06.9 Acute upper respiratory infection, unspecified (principal); F17.200 Nicotine dependence, unspecified, uncomplicated; Z79.899 Other long term (current) drug therapy; Z88.5 Allergy status to narcotic agent; Z98.890 Other specified postprocedural states
CPT/HCPCS: 99284; 96365; 71045; 96361; 96375; 82550; 80076; 84484; 80048; 83880; 85025; 87804 ×2; 83605; 36415; 84145; J1885; J7030; J0696

== ENCOUNTER 2025-06-12 10:31 | Emergency (ER) | payer OTHER ==
[~2025-06-12] VITALS: Ht 177.8 cm; Wt 109.4 kg
[~2025-06-12 10:31] MED LIST changes: +ALBUHFA IH; +CODE473S6 PO
[2025-06-12] MEDS: 0.9%NACL 1000ML 1,000 ML IV ONE (10:57)
[2025-06-12 10:59] LABS: IMMATURE GRANULOCYTE ABSOLUTE 0.12 K/uL (0-1); NUCLEATED RED BLOOD CELLS 0.0 % (0.0-0.19); PLATELET COUNT (AUTO) 230 K/uL (130-400); RED BLOOD CELL COUNT(AUTO) 4.84 MIL/uL (4.50-6.20); RED CELL DISTRIBUTION WIDTH 13.5 % (11.0-15.5); WHITE BLOOD COUNT (AUTO) 15.4 K/uL (4.8-10.8)
[2025-06-12 11:08] LABS: APPEARANCE,URINE CLEAR (CLEAR); GLUCOSE, URINE (UA) NEGATIVE (NEGATIVE); LEUKOCYTE ESTERASE ,URINE NEGATIVE Leu/uL (NEGATIVE); NITRATE,URINE NEGATIVE (NEGATIVE); OCCULT BLOOD,URINE NEGATIVE (NEGATIVE)
[2025-06-12 11:09] LABS: ADD UA MICROSCOPIC NO
[2025-06-12 11:09] LABS: CREATININE 0.9 mg/dL (0.5-1.3); GLOMERULAR FILTR. RATE CALC 120.0 mL/min (>90); GLUCOSE,RANDOM 105.0 mg/dL (70-105); SODIUM SERUM 138.0 mmol/L (136-145); UREA NITROGEN, BLOOD 14.0 mg/dL (7-18)
[2025-06-12 11:14] LABS: ASPARTATE AMINOTRANSFERASE 74.0 U/L (10-37); TOTAL PROTEIN, SERUM 7.2 g/dL (6.0-8.3)
[2025-06-12] MEDS ORDERED: IOHEXOL-350 75 ML VIAL IV ONE (11:20)
--- NOTE | 2025-06-12 11:45 | ERN ---
ED Note History of Present Illness Stated Complaint: LEFT FLANK SWELLING Chief Complaint: Flank Pain Time Seen by MD: 10:33 Time Seen by Midlevel: 10:34 Dictation: 25-year-old male presents to the emergency department due to reported having a persistent pain to the left flank area that began 3 days ago. Initially, he rated the pain as an 8/10. At this time, he rates the pain as a 10/10. The patient states that the pain is a sharp type of sensation. He states that he feels like his flank area is swollen. As per the patient, he states that the pain radiates to the left upper part of the abdomen. He reports having some chills but no confirmed fever with this. Patient states that he did have 1 episode of vomiting earlier this morning but at this time he presents with no nausea. He states that his brother and father do have history of kidney stones and does not know whether or not this might be related to it. Currently, he denies having any hematuria, penile discharge, dysuria or scrotal pain. Upon initial evaluation, the patient presents mildly uncomfortable looking. Allergies: Coded Allergies: morphine (Unverified Allergy, Unknown, 08/10/22) Emergency Care GLASS CHECKER: None Home Meds Active Scripts Albuterol Sulfate (Ventolin Hfa/Proventil Hfa/Proair Hfa) 90 Mcg Puff, 2 PUFF IH Q4HPRN PRN for wheezing for 30 Days, #18 GM 0 Refills Prov:ELISEO MIMS DO 12/26/24 Promethazine HCl/Codeine (Promethazine-Codeine Syrup) 6.25 Mg-10 Mg/5 Ml Syrup, 5 ML PO Q4HPRN PRN for cough, #120 ML 0 Refills Prov:ELISEO MIMS DO 12/25/24 Famotidine (Pepcid) 20 Mg Tablet, 1 TAB PO BID for 10 Days, #20 TAB 0 Refills Prov:BASIL CAMP 10/14/24 Ondansetron (Ondansetron Odt) 4 Mg Tab.rapdis, 4 MG PO BID for 7 Days, #14 TAB Prov:BASIL CAMP 10/14/24 Pantoprazole Sodium (Protonix) 40 Mg Ectab, 40 MG PO DAILY for 30 Days, #30 TAB.EC Prov:VARSHA ACEVEDO MD 03/09/24 Ondansetron (Ondansetron Odt) 4 Mg Tab.rapdis, 4 MG PO BID for 5 Days, #10 TAB Prov:VARSHA ACEVEDO MD 03/09/24 Pantoprazole Sodium (Protonix) 40 Mg Ectab, 40 MG PO DAILY, #30 TAB.EC Prov:MELISSA MOODY MD 08/17/23 Ondansetron (Ondansetron Odt) 4 Mg Tab.rapdis, 4 MG PO TID PRN for NAUSEA, #15 TAB 0 Refills Prov:NATHANIEL BYRD MD 12/16/22 Past Medical History Past Medical History: Anxiety, Liver Disease Additional Past Medical Hx: CIRRHOSIS, NON COMPLIANT W/ BP MEDS Surgical History: Other Surgical History Other: R ACL,R ANKLE Family History: CAD, DM, HTN Social History: Smokers, Drugs, ETOH, Lives with family RN Note Reviewed/Agreed w/PFSH: Yes Review of System Dictation Constitutional: Chills Abdomen/GI: Flank pain Initial Vital Sign VS Vital Signs Date Time Temp Pulse Resp B/P (MAP) Pulse Ox O2 Delivery O2 Flow Rate FiO2 06/12/25 10:32 99.7 93 18 134/78 96 Room Air 0 06/12/25 12:27 21 Physical Exam Dictation General: awake, alert, uncomfortable looking Head/Face: Normocephalic, atraumatic Eyes: PERRL, EOMI ENT: Oral mucosa moist Neck: Trachea midline, supple Cardiovascular: RRR, no edema Respiratory: Symmetrical, non-labored Abdomen: Soft, left CVA tenderness, left upper quadrant tenderness with involuntary guarding, non-distended, no guarding. Skin: Warm, dry, good turgor, no rash MS/Extremity: Pulses equal, no cyanosis, neurovascular intact, FROM Neuro: COAx4, GCS 15, steady gait, Psych: Normal behavior, mood, and affect normal Results (Laboratory/Radiology) Laboratory/Radiology Laboratory Tests Test 06/12/25 10:55 06/12/25 10:57 White Blood Count 15.4 K/uL (4.8-10.8) H Red Blood Count 4.84 MIL/uL (4.50-6.20) Hemoglobin 14.3 g/dL (14.0-18.0) Hematocrit 41.9 % (42-54) L Mean Corpuscular Volume 86.6 fL (79-99) Mean Corpuscular Hemoglobin 29.5 pg (27.0-33.0) Mean Corpuscular Hemoglobin Concent 34.1 g/dL (32.0-36.0) Red Cell Distribution Width 13.5 % (11.0-15.5) Platelet Count 230 K/uL (130-400) Mean Platelet Volume 10.9 fL (7.5-10.5) H Immature Granulocyte % (Auto) 0.8 % (0-1) Neutrophils (%) (Auto) 76.3 % (40.0-77.0) Lymphocytes (%) (Auto) 16.0 % (21.0-51.0) L Monocytes (%) (Auto) 6.6 % (3.0-13.0) Eosinophils (%) (Auto) 0.0 % (0.0-8.0) Basophils (%) (Auto) 0.3 % (0.0-5.0) Neutrophils # (Auto) 11.7 K/uL (1.8-7.7) H Lymphocytes # (Auto) 2.5 K/uL (1.0-4.8) Monocytes # (Auto) 1.0 K/uL (0.1-1.0) Eosinophils # (Auto) 0.00 K/uL (0.00-0.70) Basophils # (Auto) 0.04 K/uL (0.00-0.20) Absolute Immature Granulocyte (auto 0.12 K/uL (0-1) Nucleated Red Blood Cells 0.0 % (0.0-0.19) Sodium Level 138 mmol/L (136-145) Potassium Level 4.0 mmol/L (3.5-5.1) Chloride Level 103 mmol/L (101-111) Carbon Dioxide Level 27 mmol/L (21-32) Blood Urea Nitrogen 14 mg/dL (7-18) Creatinine 0.9 mg/dL (0.5-1.3) Glomerular Filtration Rate Calc 120 mL/min (>90) Random Glucose 105 mg/dL (70-105) Total Calcium 8.6 mg/dL (8.5-10.1) Total Bilirubin 0.4 mg/dL (0.2-1.0) Aspartate Amino Transf (AST/SGOT) 74 U/L (10-37) H Alanine Aminotransferase (ALT/SGPT) 92 U/L (12-78) H Alkaline Phosphatase 99 U/L (50-136) Total Protein 7.2 g/dL (6.0-8.3) Albumin 3.9 g/dL (3.5-5.0) Urine Color LIGHT-YELLOW (YELLOW) Urine Appearance CLEAR (CLEAR) Urine pH 5.5 (5.0-8.0) Urine Specific [place] 1.023 (1.001-1.031) Urine Protein NEGATIVE mg/dL (NEGATIVE) Urine Glucose (UA) NEGATIVE mg/dL (NEGATIVE) Urine Ketones NEGATIVE mg/dL (NEGATIVE) Urine Occult Blood NEGATIVE (NEGATIVE) Urine Nitrate NEGATIVE (NEGATIVE) Urine Bilirubin NEGATIVE mg/dL (NEGATIVE) Urine Urobilinogen 0.2 mg/dL (0.2-1.0) Urine Leukocyte Esterase NEGATIVE Alek/uL Labs Reviewed?: Yes CT Scan Comment: CT abdomen/pelvis with IV contrast with no pertinent findings as per radiologist's reading. ED Course ED Course Orders Procedure Category Date Status Time Cbc With Differential LAB 06/12/25 Complete 10:50 Comprehensive LAB 06/12/25 Complete Metabolic Panel 10:50 Urinalysis Profile LAB 06/12/25 Complete 10:50 Ct Abdomen/Pelvis CT 06/12/25 Resulted W/Contrast 10:50 Ketorolac PHA 06/12/25 Complete Tromethamine 30mg/Ml 11:00 0.9%Nacl 1000ml (Ns PHA 06/12/25 Complete 1000ml) 11:00 Iohexol (Omnipaque) PHA 06/12/25 Complete 11:20 Current Medications Medications (Trade) Dose Ordered Sig/Lisa Route PRN Reason Start Time Stop Time Status Last Admin Dose Admin Iohexol (Omnipaque) 75 ml STK-MED ONCE IV 06/12/25 11:20 06/12/25 11:23 DC Ketorolac Tromethamine (toRADol) 30 mg ONCE ONCE IVP 06/12/25 11:00 06/12/25 11:01 DC 06/12/25 10:56 Sodium Chloride 1,000 ml @ 0 mls/hr ONCE ONCE IV 06/12/25 11:00 06/12/25 11:01 DC 06/12/25 10:57 Vital Signs Date Time Temp Pulse Resp B/P (MAP) Pulse Ox O2 Delivery O2 Flow Rate FiO2 06/12/25 12:27 98.2 73 16 110/54 96 Room Air* 0 21 06/12/25 10:32 99.7 93 18 134/78 96 Room Air 0 Medical Decision Making MDM MDM: Differential diagnosis: Acute pyelonephritis, left renal stone, left ureteral stone, left flank pain. Rationale: Tests considered and ordered secondary to shared decision making include: Previous outside records reviewed: Old ER visits. Risk of complication and/or morbidity or mortality of patient management: None Medications-Per medication reconciliation Need for hospitalization: Patient does not meet criteria for hospitalization. Need for emergency major/minor surgery: No There are no social concerns with this patient. Prescription drug management Prescriptions will include symptomatic care Patient's prior external medical records from other ER visits were reviewed by me as indicated. Prior testing and results from previous visits were reviewed. Prior tests were taken into account with medical decision making and resource utilization, independent historian/historians were used to obtain complete medical history. I independently interpreted the test that were performed, results were reviewed by me and considered findings on radiology if ordered. Medical management and examination interpretation discussions were had by me with other qualified healthcare professionals as indicated for the patient's care. DX & DISP Disposition: Discharge Departure Impression: Primary Impression: Left flank pain Condition: Stable Referrals: SELF,REFERRAL (PCP) Time of Disposition: 12:30 MERARY SMITH Jun 12, 2025 11:45
--- NOTE | 2025-06-12 12:02 | HMCIMG ---
CT ABDOMEN/PELVIS W/CONTRAST REASON: pain COMPARISON: None. FINDINGS: Lung bases are clear. There are no focal liver lesions. Liver has grade 3 hepatic steatosis. There are normal-appearing kidneys.. Spleen and pancreas appear unremarkable. The gallbladder appears normal as well. Bowel loops appear unremarkable. This includes normal appearance of the appendix There is no evidence of free fluid or intraperitoneal air. There are no focal fluid collections. Aorta and retroperitoneum appear normal as do pelvic soft tissue structures. The anterior abdominal wall is intact. Osseous structures appear unremarkable. The pelvic structures demonstrates excretion of urinary bladder. The prostate and seminal vesicle appears to be normal. IMPRESSION: 1. The liver has grade 3 pattern steatosis 2. Otherwise no acute process seen in the CT of the abdomen and pelvis with intravenous contrast. CT was performed with one or more following dose reduction techniques: automated exposure control, adjustment of the mA and kv according to patient's size, or use of a iterative reconstruction technique.
[2025-06-12 12:27] VITALS: BP 110/54; PULSE 73; RESP 16; TEMP 98.2; O2SAT 96
== END 2025-06-12 12:42 | disposition home or self-care (01) ==
LOC: EDH 10:31
DX: R10.9 Unspecified abdominal pain (principal); F17.200 Nicotine dependence, unspecified, uncomplicated; F41.9 Anxiety disorder, unspecified; Z79.899 Other long term (current) drug therapy; Z88.5 Allergy status to narcotic agent
CPT/HCPCS: 99285; 74177; 96374; 96361; 80053; 85025; 81003; 36415; J1885; J7030; Q9967